=== PATIENT | male | born 1950 | race Caucasian/White ===

== ENCOUNTER 2023-10-17 11:45 | Emergency (ER) | payer MEDICARE, SELFPAY ==
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
[2023-10-17 11:59] VITALS: BP 142/79; PULSE 78; RESP 16; TEMP 37; O2SAT 96
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
[2023-10-17] MEDS: TETANUS,DIPHTHERIA,AC PERTUSSIS ADULT (0.5 ML) BOOSTRIX IM (12:25)
== END 2023-10-17 13:30 | disposition home or self-care (01) ==
PROVIDERS: Emergency Provider Registered Nurse; PCP Internal Medicine Geriatric Medicine
DX: S71.141A Puncture wound with foreign body, right thigh, initial encounter (principal); W34.010A Accidental discharge of airgun, initial encounter; Z23 Encounter for immunization; M19.90 Unspecified osteoarthritis, unspecified site; E11.9 Type 2 diabetes mellitus without complications; I10 Essential (primary) hypertension
CPT/HCPCS: 10120; 73560; 90471; 90715; 99213; G0463